=== PATIENT | female | born 1995 | race Caucasian/White ===

== ENCOUNTER 2016-10-28 13:49 | Emergency (ER) | payer OTHER ==
[~2016-10-28 13:49] MED LIST: CIPRO500 MG PO; IRON325 M1 PO; NORCO 5-325 TA1 EACH PO
== END 2016-10-28 15:45 | disposition home or self-care (01) ==
LOC: ER1 13:49
DX: S93.401A Sprain of unspecified ligament of right ankle, initial encounter (principal); F17.210 Nicotine dependence, cigarettes, uncomplicated; Z88.8 Allergy status to other drugs, medicaments and biological substances; W10.9XXA Fall (on) (from) unspecified stairs and steps, initial encounter; X50.1XXA Overexertion from prolonged static or awkward postures, initial encounter; Y93.01 Activity, walking, marching and hiking; Y92.009 Unspecified place in unspecified non-institutional (private) residence as the place of occurrence of the external cause
CPT/HCPCS: 73590; 73610; 73630; 99283